=== PATIENT | female | born 1950 | race Hispanic/Latino ===

== ENCOUNTER → 2017-10-27 | Outpatient (CLI) | payer MEDICARE ==
--- NOTE | 2017-10-27 12:06 | Diagnostic Imaging Report ---
PROCEDURE:X-RAY RIGHT ELBOW, COMPLETE COMPARISON:None. INDICATIONS:right elbow pain FINDINGS: 3 views of the right elbow (AP, lateral, and oblique) There are no fractures, dislocations, lytic or blastic lesions. Idiopathic changes of the triceps tendon and ulnar collateral ligament. The bones are well-mineralized. The soft-tissues are unremarkable. CONCLUSION: No acute abnormality of the right elbow. Dictated by: Jigar August M.D. on 10/27/2017 at 12:05 Electronically approved by: Jigar August M.D. on 10/27/2017 at 12:05
== END ==
LOC: RAD 11:23
PROVIDERS: ATTEND Internal Medicine
DX: M25.522 Pain in left elbow (principal)

== ENCOUNTER → 2019-02-16 | Outpatient (CLI) | payer OTHER | LOC: MAMMO 12:18 | PROVIDERS: ATTEND Internal Medicine | DX: Z12.31 Encounter for screening mammogram for malignant neoplasm of breast (principal) | CPT/HCPCS: 77067 ==